=== PATIENT | male | born 1965 | race Caucasian/White ===

== ENCOUNTER 2017-02-01 08:40 | Inpatient (IN) | payer OTHER ==
[2017-02-01] VITALS (23 sets, daily range): BP systolic 118–139; BP diastolic 62–88; PULSE 58–82; RESP 15–26; Ht 172.7 cm; Wt 73.7 kg
[~2017-02-01] VITALS: Ht 172.7 cm; Wt 73.7 kg
[~2017-02-01 08:40] MED LIST: SUCCINYLCHOLINE CHLORIDE 100 MG/5 ML SYG IV ONE
[2017-02-01] MEDS ORDERED: MIDAZOLAM 1 MG/ML 2 ML INJ ONE (11:52)
[2017-02-01] MEDS ORDERED: NEOSTIGMINE 3 MG/3 ML SYRINGE ONE (11:52)
[2017-02-01] MEDS ORDERED: ROCURONIUM 50 MG INJ ONE (11:52)
[2017-02-01] MEDS ORDERED: FENTAnyl 50 MCG/ML VIAL ONE (11:52)
[2017-02-01] MEDS ORDERED: GLYCOPYRROLATE 0.4 MG INJ ONE (11:52)
[2017-02-01] MEDS ORDERED: DEXAMETHASONE 4 MG/ML 1 ML INJ ONE ×2 (11:52→12:13)
[2017-02-01] MEDS ORDERED: PROPOFOL 20 ML ONE (11:52)
[2017-02-01] MEDS ORDERED: LIDOCAINE 2% (SDV) 5 ML INJ ONE (11:52)
[2017-02-01] MEDS ORDERED: ONDANSETRON 4 MG INJ ONE (11:53)
--- NOTE | 2017-02-01 12:02 | HPN ---
Date/Time of Note Date/Time of Note DATE: 02/01/17 TIME: 12:01 Interval H&P Admission Note Pt. seen H&P reviewed: No system changes MATT MARQUEZ MD Feb 01, 2017 12:01
[2017-02-01] MEDS ORDERED: THROMBIN 5000 UNIT VIAL ONE (12:07)
[2017-02-01] MEDS ORDERED: CA CHLORIDE 10% 10 ML SYRINGE ONE (12:07)
[2017-02-01] MEDS ORDERED: POLYMYXIN/BACITRACIN 1L IRRIG ONE (12:07)
[2017-02-01] MEDS ORDERED: BUPIVACAINE 0.25% (MPF) 30 ML INJ ONE (12:07)
[2017-02-01] MEDS ORDERED: BUPIVACAINE 0.25%/EPI (SDV) 30 ML INJ ONE (12:07)
[2017-02-01] MEDS ORDERED: GELATIN SIZE 100 SPONGE ONE (12:07)
[2017-02-01] MEDS ORDERED: CEFAZOLIN 1 GM INJ ONE (12:16)
[2017-02-01] MEDS ORDERED: ONDANSETRON 4 MG INJ IV PRN ×2 (12:30→14:00)
[2017-02-01] MEDS ORDERED: BISACODYL 10 MG SUPP PR PRN (12:30)
[2017-02-01] MEDS ORDERED: CEPASTAT LOZENGE MT PRN (12:30)
[2017-02-01] MEDS ORDERED: HYDROmorphONE 1 MG/ML SYG IV PRN (12:30)
[2017-02-01] MEDS ORDERED: ACETAMINOPHEN 325 MG TAB PO PRN (12:30)
[2017-02-01] MEDS ORDERED: NALOXONE (0.4 MG/ML) INJ IV PRN (12:30)
[2017-02-01] MEDS ORDERED: CYCLOBENZAPRINE 10 MG TAB PO PRN (12:30)
[2017-02-01] MEDS ORDERED: DIPHENHYDRAMINE 25 MG CAP PO PRN (12:30)
[2017-02-01] MEDS ORDERED: AL HYDROX/MG HYDROX/SIMETH 30 ML CUP PO PRN (12:30)
[2017-02-01] MEDS ORDERED: DIPHENHYDRAMINE 50 MG INJ IV PRN ×2 (12:30→14:00)
[2017-02-01] MEDS ORDERED: CEFAZOLIN 1 GM/50 ML (PMX) 50 ML IVPB SCH (12:30)
[2017-02-01] MEDS ORDERED: SURGIFOAM POWDER 1 GM KIT ONE (12:57)
[2017-02-01] MEDS ORDERED: morphine (1 MG/ML) 10ML SYRINGE IV PRN ×3 (14:00)
[2017-02-01] MEDS ORDERED: FENTAnyl 50 MCG/ML VIAL IV PRN ×2 (14:00)
[2017-02-01] MEDS ORDERED: ATROPINE 1 MG/10 ML SYRINGE IV PRN (14:00)
[2017-02-01] MEDS ORDERED: OXYCODONE/ACETAMINOPHEN (5/325) TAB PO PRN ×2 (14:00)
[2017-02-01] MEDS ORDERED: EPHEDrine SULFATE 50 MG/5 ML SYG IV PRN (14:00)
[2017-02-01] MEDS ORDERED: MEPERIDINE 25 MG INJ IV PRN (14:00)
[2017-02-01] MEDS ORDERED: LABETALOL HCL 20MG INJ IV PRN (14:00)
[2017-02-01] MEDS ORDERED: hydrALAzine 20 MG INJ IV PRN (14:00)
[2017-02-01] MEDS ORDERED: HYDROmorphONE (0.2 MG/ML) 10ML SYG IV PRN ×3 (14:00)
[2017-02-01] MEDS ORDERED: MIDAZOLAM 1 MG/ML 2 ML INJ IV PRN (14:00)
--- NOTE | 2017-02-01 14:01 | RADRPT ---
PROCEDURE: Intraoperative XR. CLINICAL INDICATION: Intraoperative radiograph during L3-4 microdiskectomy. TECHNIQUE: Spot intraoperative lateral lumbar x-ray image was provided. The images were reviewed on a high-resolution PACS workstation. COMPARISON: None available FINDINGS: Spot intraoperative lateral lumbar view were provided during L3-4 microdiskectomy. The images demon strate metallic instrumentation at the level of L3-4. IMPRESSION: 1. Spot intraoperative lateral lumbar view during L3-4 microdiskectomy were provided. 2. Please see operative report of the same day for further information. RPTAT: HGAS .Kyle Gonzales MD, Date Time Electronically viewed and signed by .Kyle Gonzales MD, on 02/01/2017 14:01 .S/
--- NOTE | 2017-02-01 14:01 | RADRPT ---
PROCEDURE: Intraoperative XR. CLINICAL INDICATION: Intraoperative radiograph during L3-4 microdiskectomy. TECHNIQUE: Spot intraoperative lateral lumbar x-ray image was provided. The images were reviewed on a high-resolution PACS workstation. COMPARISON: None available FINDINGS: Spot intraoperative lateral lumbar view were provided during L3-4 microdiskectomy. The images demon strate metallic probe at the level of L3-4 and L4-5. IMPRESSION: 1. Spot intraoperative lateral lumbar view during L3-4 microdiskectomy were provided. 2. Please see operative report of the same day for further information. RPTAT: HGAS .Kyle Gonzales MD, MD Date Time Electronically viewed and signed by .Kyle Gonzales MD, on 02/01/2017 14:00 .S/
--- NOTE | 2017-02-01 14:25 | OPR ---
Date/Time of Note Date/Time of Note DATE: 02/01/17 TIME: 14:24 Operative Report Preoperative Diagnosis right L3-4 hnp Postoperative Diagnosis right L3-4 hnp Operation/Procedure Performed right L3-4 discectomy Surgeon: MATT MARQUEZ MD kindergarten teacher assistant: KATH GALEANA PA-C Anesthesia: general Estimated Blood Loss: 50 - 100 ml's Specimens disk Complications: None MATT MARQUEZ MD Feb 01, 2017 14:25
[2017-02-01] MEDS: HYDROmorphONE 0.2 MG/ML PCA IV SCH ×2 (14:31→22:37)
[2017-02-01] MEDS: D5W-0.45 NACL + KCL 20 MEQ 1,000 ML IV SCH ×2 (16:34→22:05)
--- NOTE | 2017-02-01 17:22 | CONS ---
Date/Time of Note Date/Time of Note DATE: 02/01/17 TIME: 17:19 Assessment/Plan Assessment/Plan Problems: (1) Status post lumbar microdiscectomy Status: Acute Comment: Otherwise vibrant healthy male status post injury. He is now postoperative and appears that he is doing well without any postoperative complications in the immediate postoperative timeframe. We will continue to monitor and watch for issues arising. Consultation Date/Type/Reason Admit Date/Time Feb 01, 2017 at 08:40 Date of Consultation: Feb 01, 2017 Type of Consultation: Internal medicine Reason for Consultation Status post lumbar microdiscectomy 3 4 Referring Provider: MATT MARQUEZ MD Hx of Present Illness Charming 51-year-old gentleman who is very physically active. He suffered a lumbar disc injury in roughly May 2017. He failed all consent conservative attempts at treatment as brought in for microdiscectomy. He is seen postoperatively sitting in bed. He reports no fevers chills or sweats denies any chest pain shortness of breath or palpitations. He reports that his legs are doing well although he still has the area of numbness on the right hand side. He is not having any spasm. Constitutional: no complaints Eyes: no complaints Respiratory: no complaints Cardiovascular: no complaints Gastrointestinal: no complaints Genitourinary: no complaints Musculoskeletal: no complaints Skin: no complaints Past Medical History Medical History: no pertinent history Past Surgical History Status post vasectomy Family History Significant Family History: no pertinent family hx Social History Alcohol Use: rarely Smoking Status: Never smoker Drug Use: none Exam/Review of Systems Vital Signs Vitals Vital Signs Date Time Temp Pulse Resp B/P Pulse Ox O2 Delivery O2 Flow Rate FiO2 02/01/17 15:26 60 22 133/73 96 Room Air 02/01/17 14:26 98.7 Exam Vibrant gentleman sitting in bed Constitutional: alert, oriented Eyes: EOMI, nl conjunctiva, nl lids, nl sclera ENMT: mucosa pink and moist, nl external ears & nose, nl lips & teeth, nl nasal mucosa & septum Neck: non-tender, supple Respiratory: clear to auscultation, normal air movement Cardiovascular: nl pulses, regular rate and rhythm Gastrointestinal: nl liver, spleen, non-tender, soft Medications Medications Current Medications Potassium Chloride/Dextrose/ Sod Cl (D5-1/2ns + KCl 20 Meq) 1,000 ml @ 100 mls/ hr Q10H IV Last administered on 02/01/17 16:34; Admin Dose 100 MLS/HR; Start 02/01/17 at 12:02 Acetaminophen/ Hydrocodone Bitart ([place] (10/325)) 1 tab Q4H PRN PO PAIN LEVEL 1-5; Start 02/02/17 at 10:00 Acetaminophen/ Hydrocodone Bitart ([place] (10/325)) 2 tab Q4H PRN PO PAIN LEVEL 6-10; Start 02/02/17 at 10:00 Hydromorphone HCl (Dilaudid) 0.2 mg Q1H PRN IV BREAKTHROUGH PAIN; Start at 12:30 Ondansetron HCl (Zofran Inj) 4 mg Q6H PRN IV NAUSEA AND/OR VOMITING; Start at 12:30 Bisacodyl (Dulcolax Supp) 10 mg DAILY PRN [place] CONSTIPATION; Start 02/01/17 at 12 :30 Docusate Sodium (Colace) 100 mg BID PO ; Start 02/01/17 at 21:00 Pantoprazole (Protonix Iv) 40 mg DAILY@06 IV ; Start 02/02/17 at 06:00 Al Hydrox/Mg Hydrox/Simethicone (Mag-Al Plus) 15 ml Q6H PRN PO CONSTIPATION/ DYSPEPSIA; Start 02/01/17 at 12:30 Acetaminophen (Tylenol Tab) 650 mg Q4H PRN PO DEL REAL OR TEMP GREATER THAN 101.3F; Start 02/01/17 at 12:30 Cyclobenzaprine HCl (Flexeril) 10 mg TID PRN PO MUSCLE SPASMS; Start 02/01/17 at 12:30 Phenol (Cepastat Lozenge) 1 lozenge PRN PRN MT SORE THROAT Last administered on 02/01/17t 16:34; Admin Dose 1 LOZENGE; Start 02/01/17 at 12:30 Diphenhydramine HCl (Benadryl) 25 mg Q6H PRN PO ITCHING; Start 02/01/17 at 12: 30 Diphenhydramine HCl (Benadryl) 25 mg Q6H PRN IV ITCHING; Start 02/01/17 at 12: 30 Naloxone HCl (Narcan) 0.2 mg Q2M PRN IV RR 8 BREATHS/MIN OR LESS; Start at 12:30 Hydromorphone HCl (Dilaudid CUTTING TOOL SHARPENER) CUTTING TOOL SHARPENER to be started in PACU Q4PCA IV Last administered on 02/01/17t 14:31; Admin Dose 6 MG; Start 02/01/17 at 12:30; Stop 02/02/17 at 10:00 Miscellaneous Information 1. Hold CUTTING TOOL SHARPENER at 1,000... CUTTING TOOL SHARPENER IV ; Start 02/01/17 at 12: 30; Stop 02/02/17 at 10:00 Cefazolin Sodium (Ancef 1 Gm/50 ml (Pmx)) 50 ml @ 100 mls/hr Q8H IVPB ; Start 02/01/17 at 20:00; Stop 02/02/17 at 12:29 SOCO CALL MD Feb 01, 2017 17:22
[2017-02-01] MEDS: CEFAZOLIN 1 GM/50 ML (PMX) 50 ML IVPB SCH (20:10)
[2017-02-01] MEDS: DOCUSATE SODIUM 100 MG CAP PO SCH (20:10)
--- NOTE | 2017-02-01 20:16 | OPR ---
DATE OF OPERATION: 02/01/2017 PREOPERATIVE DIAGNOSIS: Right L3-4 disk herniation with radiculopathy. POSTOPERATIVE DIAGNOSIS: Right L3-4 disk herniation with radiculopathy. OPERATION PERFORMED: 1. Right L3-4 hemilaminotomy, partial medial facetectomy, and foraminotomy. 2. Right L3-4 lumbar microdiskectomy. 3. Lateral localizing film x2. 4. Use of operative microscope. 5. Intraoperative neuromonitoring (1.5 hours). PRIMARY SURGEON: Mika Lock MD LOCKSTITCH COLLAR SETTER: TONY Valencia NEED FOR ASSEMBLER SMALL PRODUCTS: During this spinal surgical procedure, my senior agricultural assistant was used to retrac t and protect the spinal nerves and dural sac. My senior agricultural assistant also employed the suction catheters to evacuate blood from the surgical field to improve visualization of the neural structures. The paty tant was medically necessary to facilitate the completion of the surgery in a safe and expeditious m reinaldo. [facility] [place] regulations, as well as hospital bylaws, preclude the use of non-license d health care personnel, such as operating room technicians, to perform these functions. FINDINGS: Neuromonitoring at start of the case revealed right L3 and L4 amplitudes down 40%. At th e end of the case, nerve signals returned to normal. The patient had a right-sided herniation at L3 -4. ESTIMATED BLOOD LOSS: 60 mL. DRAINS: None. SPECIMENS: Disk. COMPLICATIONS OF PROCEDURES: None. ANESTHESIOLOGIST: Dr. Cagle TYPE OF ANESTHESIA: General. INDICATIONS FOR PROCEDURE: This is a 51-year-old gentleman with right-sided radiculopathy in the se tting of disk herniation at L3-4. He had failed nonoperative measures, therefore, I recommended pro ceeding with the above-mentioned surgery. Preoperatively, we discussed the risks, benefits, and alt ernatives. He understood and wished to proceed. DESCRIPTION OF PROCEDURE IN DETAIL: The patient was identified in the preoperative holding area, [facility], taken to the operating room, where he was successfully placed under general an esthesia. Neuromonitoring leads were placed, sequential compressive devices were applied. Neuromon itoring was utilized during the procedure for 1.5 hours to include SSEP, MEP, and EMG. This was per formed by [employer]. Start time was 12:45, closure time was 2:[address] The patient was place d on the operating table, turned in prone position over Chuck frame. All bony prominences were wel l padded. The back was then prepped and draped in the usual sterile fashion. Spinal needles were p laced. Lateral localizing films obtained to confirm the correct levels. Once this was confirmed, I injected Marcaine with epinephrine into the paraspinal musculature. An incision was then made over the L3-4 level. Incision was taken down to dorsal fascia, which was incised with Bovie cautery. I then subperiosteally dissected to the right L3 lamina. Li retractor was placed. Kerrison was placed in what was felt to be the L3 lamina and repeat lateral films obtained to confirm the correct level. Microscope was then brought in. The patient had a very narrow and particular distance was a short lamina, but I was able to perform a hemilaminotomy with partial medial facetectomy. The hem ilaminotomy had to go quite high due to the patient's anatomy. I was able to identify the disk spac e after removing ligamentum flavum. My senior agricultural assistant retracted this medially. I made an annulotomy fol lowed by diskectomy. Once this was done, all nerve signals returned to normal. I irrigated the wou nd and the disk space. Hemostasis was achieved with bipolar cautery and Surgifoam. Valsalva was pe rformed at the end of the case. There was no leak of CSF. At the end of the case, all nerve signal s returned to normal. After irrigation was done, the anesthesiologist lito peripheral blood, which was spun down using the Jumptapan device. I took the platelet-poor plasma and mixed this with thromb in and injected this over the dura for hemostatic purposes. Retractors were removed. I closed the deep fascia with a #1 Vicryl stitch. Microscope was taken off the field. A 2-0 Vicryl closure was then performed followed by 4-0 Monocryl and Dermabond. The patient was then awakened from anesthesi a and taken to recovery room in stable condition. Lap, sponge, and instrument counts were correct x 2. There were no apparent complications during the procedure. The patient will be admitted to the [facility] for routine postoperative care to include pain c ontrol, neurovascular checks, antibiotics, and physical therapy. Dictated By: MIKA AL/MANISH Conf#: [id number] DID#: [id number]
[2017-02-02] MEDS: CEFAZOLIN 1 GM/50 ML (PMX) 50 ML IVPB SCH ×2 (04:04→11:49)
[2017-02-02 05:18] LABS: ADD SCAN DIFF NO
[2017-02-02 05:32] LABS: BASOPHILS % 0.2 % (0.0-2.0); HEMATOCRIT 43.6 % (42.0-52.0); HEMOGLOBIN 14.5 g/dl (14.0-18.0); LYMPHOCYTES % 7.8 % (15.0-51.0); MEAN CORPUSCULAR HEMOGLOBIN 33.6 pg (29.0-33.0); MEAN CORPUSCULAR HGB CONC 33.3 g/dl (32.0-37.0); MEAN CORPUSCULAR VOLUME 100.9 fl (82.0-101.0); MEAN PLATELET VOLUME 10.3 fl (7.4-10.4); MONOCYTES % 7.8 % (0.0-11.0); NEUTROPHIL # 10.7 10^3/ul (1.6-7.5); NEUTROPHILS % 83.7 % (39.0-77.0); PLATELET COUNT 169 10^3/UL (140-415); RED BLOOD COUNT 4.32 10^6/ul (4.70-6.10); RED CELL DISTRIBUTION WIDTH 13.1 % (11.5-14.5); WHITE BLOOD COUNT 12.8 10^3/ul (4.8-10.8)
[2017-02-02 05:50] LABS: CALCIUM 8.4 mg/dl (8.4-10.2); CREATININE 0.72 mg/dl (0.61-1.24); MAGNESIUM 1.7 mg/dl (1.7-2.5); POTASSIUM 4.3 mmol/L (3.5-5.1)
[2017-02-02] MEDS ORDERED: PANTOPRAZOLE 40 MG INJ IV SCH (06:00)
[2017-02-02] MEDS: D5W-0.45 NACL + KCL 20 MEQ 1,000 ML IV SCH (08:02)
[2017-02-02 08:22] VITALS: BP 111/76; RESP 18
[2017-02-02] MEDS: DOCUSATE SODIUM 100 MG CAP PO SCH (08:44)
--- NOTE | 2017-02-02 09:36 | DS ---
Date/Time of Note Date/Time of Note DATE: 02/02/17 TIME: 09:34 Discharge Summary Admission/Discharge Info Admit Date/Time Feb 01, 2017 at 08:40 Discharge Date/Time February 02, 2017 Discharge Diagnosis Status post lumbar microdiscectomy Patient Condition: Good Procedures The patient was taken to the operating room on February 01 and underwent lumbar microdiscectomy Hospital Course The patient was taken to the operating room after undergoing the above procedure. His postoperative course was uncomplicated. By postoperative day 1 he was deemed stable for discharge with follow-up arranged with the undersigned Home Meds No Active Prescriptions or Reported Meds Primary Care Provider Not On Staff Doctor Pending Labs Laboratory Tests Test 02/02/17 04:25 White Blood Count 12.810^3/ul (4.8-10.8) Red Blood Count 4.3210^6/ul (4.70-6.10) Hemoglobin 14.5g/dl (14.0-18.0) Hematocrit 43.6% (42.0-52.0) Mean Corpuscular Volume 100.9fl (82.0-101.0) Mean Corpuscular Hemoglobin 33.6pg (29.0-33.0) Mean Corpuscular Hemoglobin Concent 33.3g/dl (32.0-37.0) Red Cell Distribution Width 13.1% (11.5-14.5) Platelet Count 97144^3/UL (140-415) Mean Platelet Volume 10.3fl (7.4-10.4) Neutrophils % 83.7% (39.0-77.0) Lymphocytes % 7.8% (15.0-51.0) Monocytes % 7.8% (0.0-11.0) Eosinophils % 0.0% (0.0-7.0) Basophils % 0.2% (0.0-2.0) Nucleated Red Blood Cells % 0.0/100WBC (0.0-0.0) Neutrophils # 10.710^3/ul (1.6-7.5) Lymphocytes # 1.010^3/ul (0.8-2.9) Monocytes # 1.010^3/ul (0.3-0.9) Eosinophils # 0.010^3/ul (0.0-0.5) Basophils # 0.010^3/ul (0.0-0.1) Nucleated Red Blood Cells # 0.010^3/ul (0.0-0.0) Sodium Level 134mmol/L (135-144) Potassium Level 4.3mmol/L (3.5-5.1) Chloride Level 103mmol/L (97-110) Carbon Dioxide Level 28mmol/L (21-31) Anion Gap 7 (8-16) Blood Urea Nitrogen 6mg/dl (7-20) Creatinine 0.72mg/dl (0.61-1.24) Glucose Level 127mg/dl (70-220) Calcium Level 8.4mg/dl (8.4-10.2) Magnesium Level 1.7mg/dl (1.7-2.5) MATT MARQUEZ MD Feb 02, 2017 09:36
[2017-02-02] MEDS ORDERED: HYDROCODONE/APAP (10/325) TAB PO PRN ×2 (10:00)
== END 2017-02-02 13:00 | disposition home health service (06) | DRG 520 ==
LOC: REC 08:40 → MS1 15:53
PROVIDERS: ADMIT Specialist; ATTEND Specialist
PROC: 01NB0ZZ Release Lumbar Nerve, Open Approach (ICD-10-PCS; 2017-02-01)
PROC: 0SB20ZZ Excision of Lumbar Vertebral Disc, Open Approach (ICD-10-PCS; principal; 2017-02-01 12:00)
DX: M51.16 Intervertebral disc disorders with radiculopathy, lumbar region (principal); Z88.6 Allergy status to analgesic agent; Z82.49 Family history of ischemic heart disease and other diseases of the circulatory system; Z80.8 Family history of malignant neoplasm of other organs or systems
CPT/HCPCS: 72020; 80048; 83735; 85025; 86999; 97162; C9113; J0690; J1100; J1170; J2250; J2405; J2710; J3010; J3480; J7999